=== PATIENT | male | born 1985 | race Caucasian/White ===

== ENCOUNTER 2021-10-02 12:18 | Emergency (ER) | payer OTHER ==
[~2021-10-02] VITALS: Ht 177.8 cm; Wt 90.9 kg
[2021-10-02 12:32] VITALS: BP 122/74
--- NOTE | 2021-10-02 12:47 | NUR ---
PT TO XRAY.
[2021-10-02] MEDS ORDERED: ibuprofen tablet 400 MG TABLET PO ONE (13:55)
== END 2021-10-02 14:07 | disposition home or self-care (01) ==
LOC: ER 12:19
DX: S93.401A Sprain of unspecified ligament of right ankle, initial encounter (principal); W19.XXXA Unspecified fall, initial encounter; Y92.89 Other specified places as the place of occurrence of the external cause; Y93.89 Activity, other specified; Y99.8 Other external cause status
CPT/HCPCS: 73610; 99284